=== PATIENT | male | born 1980 | race Two or more races ===

== ENCOUNTER 2017-04-17 23:10 | Emergency (ER) | payer SELFPAY ==
[~2017-04-17] VITALS: Ht 172.7 cm; Wt 86.2 kg
[2017-04-17 23:21] VITALS: BP 149/97
--- NOTE | 2017-04-17 23:42 | PHYS DOC ---
Past Medical History Past Medical History: No Pertinent History Past Surgical History: No Surgical History Alcohol Use: Occasionally Drug Use: None Adult General Chief Complaint Chief Complaint: LACERATION/AVULSION [facility] HPI Patient is a 37 year old male presents to the emergency department with complaints of a laceration in the left axillary region. Patient states he was in the shower when he fell causing the handle of the faucet to lacerate his left axillary region. Hemostasis obtained prior to arrival. Denies loss of function of upper extremity. Review of Systems Review of Systems Constitutional: Denies fever or chills [] Eyes: Denies change in visual acuity, redness, or eye pain [] HENT: Denies nasal congestion or sore throat [] Respiratory: Denies cough or shortness of breath [] Cardiovascular: No additional information not addressed in HPI [] GI: Denies abdominal pain, nausea, vomiting, bloody stools or diarrhea [] : Denies dysuria or hematuria [] Musculoskeletal: Denies back pain or joint pain [] Integument: Laceration Neurologic: Denies headache, focal weakness or sensory changes [] Endocrine: Denies polyuria or polydipsia [] Current Medications Current Medications Current Medications Medications (Trade) Dose Ordered Sig/Ramses Start Time Stop Time Status Last Admin Dose Admin Acetaminophen/ Codeine Phosphate (Tylenol #3) 1 tab 1X ONCE 04/17/17 23:45 04/17/17 23:46 DC 04/17/17 23:38 1 TAB Diphtheria/ Tetanus/Acell Pertussis (Boostrix) 0.5 ml ONCE ONCE 04/17/17 23:45 04/17/17 23:46 DC 04/17/17 23:52 0.5 ML Lidocaine HCl (Xylocaine-Mpf 1% Vial) 2 ml 1X ONCE 04/17/17 23:45 04/17/17 23:46 DC 04/17/17 23:38 2 ML Allergies Allergies Allergies Coded Allergies Type Severity Reaction Last Updated Verified No Known Drug Allergies 04/17/17 No Physical Exam Physical Exam Constitutional: Well developed, well nourished, no acute distress, non-toxic appearance. [] HENT: Normocephalic, atraumatic, bilateral external ears normal, oropharynx moist, no oral exudates, nose normal. [] Eyes: PERRLA, EOMI, conjunctiva normal, no discharge. [] Neck: Normal range of motion, no tenderness, supple, no stridor. [] Cardiovascular:Heart rate regular rhythm, no murmur [] Lungs & Thorax: Bilateral breath sounds clear to auscultation [] Abdomen: Bowel sounds normal, soft, no tenderness, no masses, no pulsatile masses. [] Skin: Warm, dry, no erythema, left axillary region with a 3 cm partial thickness stellate laceration, Back: No tenderness, no CVA tenderness. [] Extremities: No tenderness, no cyanosis, no clubbing, ROM intact, no edema. [] Neurologic: Alert and oriented X 3, normal motor function, normal sensory function, no focal deficits noted. [] Psychologic: Affect normal, judgement normal, mood normal. [] Current Patient Data Vital Signs Vital Signs Date Time Temp Pulse Resp B/P (MAP) Pulse Ox O2 Delivery O2 Flow Rate FiO2 04/17/17 23:38 22 Room Air 04/17/17 23:21 98.2 79 97 98.2 EKG EKG [] Radiology/Procedures Radiology/Procedures Chest x-ray reviewed by Dr. Daniel, no acute changes []Procedure note: Left axillary wound cleansed with Betadine, anesthetized with 4 mL 1% lidocaine without epinephrine. Wound was copiously irrigated with Betadine normal saline. Wound was then debrided, wound edges approximated with 6 victorino. Patient tolerated procedure well. Dressing applied. Course & Med Decision Making Course & Med Decision Making Pertinent Labs and Imaging studies reviewed. (See chart for details) []On arrival, Dr.'s Ramirez and Shawn consulted, pt evaluated by . She is in agreement with plan Ramona Disclaimer Dragon Disclaimer This electronic medical record was generated, in whole or in part, using a voice recognition dictation system. Departure Departure Impression: Primary Impression: Laceration of axilla Disposition: 01 HOME, SELF-CARE Condition: STABLE Referrals: [facility] Patient Instructions: Laceration Care, Adult Additional Instructions: Follow-up with Your primary care physician or return the emergency Department for new symptoms or concerns or worsening condition. Staple removal 10 days. Scripts Acetaminophen With Codeine (TYLENOL WITH CODEINE #3 TABLET) 1 Each Tablet 1 TAB PO PRN Q6HRS Y for PAIN, #12 TAB Prov: BARB SHARMA [employer]TRACTOR F[employer]ER 04/17/17 Naproxen (NAPROSYN) 500 Mg Tablet 500 MG PO BID Y for PAIN, #20 TAB Prov: BARB SHARMA APRN 04/17/17 Amoxicillin/Potassium Clav (AMOX TR-K CLV 875-125 MG TAB) 1 Each Tablet 1 TAB PO BID, #20 TAB Prov: BARB SHARMA APRN 04/17/17 Problem Qualifiers Primary Impression: Laceration of axilla Encounter type: initial encounter Laterality: left Qualified Codes: S41.012A - Laceration without foreign body of left shoulder, initial encounter BARB SHARMA APRN Apr 17, 2017 23:42
[2017-04-17] MEDS ORDERED: LIDOCAINE 1% PF 2 ML VIAL. INJ ONE (23:45)
[2017-04-17] MEDS ORDERED: DIPHTH,PERTUSS(ACELL),TET TOX 0.5 ML DISP.SYRIN. VAX IM ONE (23:45)
[2017-04-17] MEDS ORDERED: ACETAMINOPHEN/CODEINE 300/30MG TABLET. PO ONE (23:45)
[2017-04-17] MEDS ORDERED: NAPR500T PO (23:59)
[2017-04-17] MEDS ORDERED: ACET-704 PO (23:59)
[2017-04-17] MEDS ORDERED: AMOX1TAB11 PO (23:59)
--- NOTE | 2017-04-18 07:48 | RAD ---
Indication pain associated with a fall. Frontal and lateral views of the chest were obtained. No prior imaging of the chest is available. The heart, pulmonary vessels and mediastinum appear normal. The lungs are clear. There is no pleural fluid or pneumothorax. Skin victorino are noted in the left axilla. The visualized bony structures appear grossly intact. IMPRESSION: No acute or focal process seen in the chest
== END 2017-04-18 00:06 | disposition home or self-care (01) ==
LOC: ER 23:10
DX: S41.112A Laceration without foreign body of left upper arm, initial encounter (principal); Y28.8XXA Contact with other sharp object, undetermined intent, initial encounter; Y93.89 Activity, other specified; Y92.89 Other specified places as the place of occurrence of the external cause; Y99.8 Other external cause status
CPT/HCPCS: 12002; 71020; 90471; 90715; 99284-25

== ENCOUNTER 2017-04-29 17:14 | Emergency (ER) | payer SELFPAY ==
[~2017-04-29] VITALS: Ht 167.6 cm; Wt 86.2 kg
[~2017-04-29 17:14] MED LIST: ACET-704 PO; AMOX1TAB11 PO; NAPR500T PO
[2017-04-29 17:20] VITALS: BP 149/60
--- NOTE | 2017-04-29 17:32 | PHYS DOC ---
Past Medical History Past Medical History: No Pertinent History Past Surgical History: No Surgical History Alcohol Use: Occasionally Drug Use: None Adult General Chief Complaint Chief Complaint: SUTURE/STAPLE REMOVAL [facility] Patient is a 37 year old male presents to the ED for suture removal. 7 giovani placed to left axilla s/p slip and fall in shower. Denies fever, discharge, headache, fever, abscess or n/v. Review of Systems Review of Systems Constitutional: Denies fever or chills [] Eyes: Denies change in visual acuity, redness, or eye pain [] HENT: Denies nasal congestion or sore throat [] Respiratory: Denies cough or shortness of breath [] Cardiovascular: No additional information not addressed in HPI [] GI: Denies abdominal pain, nausea, vomiting, bloody stools or diarrhea [] : Denies dysuria or hematuria [] Musculoskeletal: Denies back pain or joint pain [] Integument: Denies rash or skin lesions [] Neurologic: Denies headache, focal weakness or sensory changes [] Endocrine: Denies polyuria or polydipsia [] Allergies Allergies Allergies Coded Allergies Type Severity Reaction Last Updated Verified No Known Drug Allergies 04/17/17 No Physical Exam Physical Exam Constitutional: Well developed, well nourished, no acute distress, non-toxic appearance. [] HENT: Normocephalic, atraumatic, bilateral external ears normal, oropharynx moist, no oral exudates, nose normal. [] Eyes: PERRLA, EOMI, conjunctiva normal, no discharge. [] Neck: Normal range of motion, no tenderness, supple, no stridor. [] Cardiovascular:Heart rate regular rhythm, no murmur [] Lungs & Thorax: Bilateral breath sounds clear to auscultation [] Abdomen: Bowel sounds normal, soft, no tenderness, no masses, no pulsatile masses. [] Skin: Warm, dry, no erythema, no rash. 7 GIOVANI INTACT TO LEFT AXILLA. [] Back: No tenderness, no CVA tenderness. [] Extremities: No tenderness, no cyanosis, no clubbing, ROM intact, no edema. [] Neurologic: Alert and oriented X 3, normal motor function, normal sensory function, no focal deficits noted. [] Psychologic: Affect normal, judgement normal, mood normal. [] EKG EKG [] Radiology/Procedures Radiology/Procedures [] Course & Med Decision Making Course & Med Decision Making Pertinent Labs and Imaging studies reviewed. (See chart for details) []Giovani removed. No complications. Dragon Disclaimer Dragon Disclaimer This electronic medical record was generated, in whole or in part, using a voice recognition dictation system. Departure Departure Impression: Primary Impression: Removal of giovani Disposition: HOME, SELF-CARE Condition: IMPROVED Referrals: NO PCP (PCP) DERECK CARRILLO MD Patient Instructions: Staple Removal, Care After KIMBERLY CORMIER Apr 29, 2017 17:32
== END 2017-04-29 17:36 | disposition home or self-care (01) ==
LOC: ER 17:14
DX: S41.112D Laceration without foreign body of left upper arm, subsequent encounter (principal); W18.2XXD Fall in (into) shower or empty bathtub, subsequent encounter
CPT/HCPCS: 99281